=== PATIENT | male | born 1995 | race Two or more races ===

== ENCOUNTER 2025-01-28 17:13 | Emergency (ER) | payer MEDICAID ==
[~2025-01-28] VITALS: Ht 170.2 cm; Wt 104.3 kg
[2025-01-28] MEDS ORDERED: KETOROLAC TROMETHAMINE 15 MG/ML VIAL ONE (17:59)
[2025-01-28] MEDS: KETOROLAC TROMETHAMINE 15 MG/ML VIAL IV ONE (18:13)
[2025-01-28] MEDS: IV NS 0.9% 1,000 ML BAG IV ONE (18:16)
[2025-01-28 18:20] LABS: BASOPHILS % (AUTO) 0.2 % (0.0-2.0); EOSINOPHILS % (AUTO) 0.3 % (0.0-6.0); HEMATOCRIT 44 % (39-51); LYMPHOCYTES # (AUTO) 0.4 K/uL (0.8-4.8); LYMPHOCYTES % (AUTO) 3.5 % (20.0-44.0); MEAN CORPUSCULAR HEMOGLOBIN 28 PG (26.0-33.0); MEAN CORPUSCULAR HGB CONC 34 g/dl (31.0-36.0); MEAN CORPUSCULAR VOLUME 81 fL (80-96); MONOCYTES # (AUTO) 0.7 K/uL (0.1-1.30); MONOCYTES % (AUTO) 5.5 % (2.0-12.0); NEUTROPHILS # (AUTO) 11.4 K/uL (1.8-8.9); NEUTROPHILS % (AUTO) 90.5 % (43.0-81.0); PLATELET COUNT (AUTO) 192 K/uL (150-450); RED BLOOD CELL COUNT(AUTO) 5.44 MIL/uL (4.5-6.0); RED CELL DISTRIBUTION WIDTH 13.6 % (11.5-15.0); WHITE BLOOD COUNT (AUTO) 12.6 K/uL (4.3-11.0)
[2025-01-28 18:22] LABS: CREATININE 1.2 mg/dL (0.6-1.3); POTASSIUM 3.8 mmol/L (3.5-5.1)
[2025-01-28] MEDS ORDERED: IOHEXOL-350 100 ML VIAL IV ONE (18:25)
[2025-01-28] MEDS ORDERED: IV NS 0.9% 250 ML IV ONE (18:25)
[2025-01-28] MEDS ORDERED: CT SWABBABLE VALVE TRANS SET 1 EA INFUS.SET MC ONE (18:25)
[2025-01-28 18:35] LABS: CALCIUM, SERUM 8.5 mg/dL (8.5-10.1)
[2025-01-28 18:36] LABS: PARTIAL THROMBOPLASTIN TIME 24.1 SEC (24.3-34.3); PROTHROMBIN TIME 10.6 SECS (9.2-11.1)
[2025-01-28] MEDS ORDERED: ALBU18HF2 INH (20:09)
[2025-01-28] MEDS ORDERED: AMOX500T2 PO (20:09)
[2025-01-28] MEDS ORDERED: DOXY100C2 PO (20:09)
[2025-01-28 20:50] VITALS: BP 125/89; TEMP 98; O2SAT 98
== END 2025-01-28 20:50 | disposition home or self-care (01) ==
LOC: ER 17:18
DX: J18.9 Pneumonia, unspecified organism (principal); R04.2 Hemoptysis; R05.9 Cough, unspecified; R09.81 Nasal congestion; R53.81 Other malaise; Z20.822 Contact with and (suspected) exposure to COVID-19
CPT/HCPCS: 99285; 96374; 71275; 71045; 96361; 87426; 93005 ×2; 87804 ×2; 85025; 80048; 36415; 85730; J1885; J7050; Q9967